=== PATIENT | female | born 1995 | race Caucasian/White ===

== ENCOUNTER 2016-12-31 23:41 | Emergency (ER) | payer MEDICAID ==
[~2016-12-31] VITALS: Ht 157.5 cm; Wt 70.0 kg
[2016-12-31] MEDS ORDERED: NORE0.3523 PO (23:50)
[2017-01-01 00:16] LABS: APPEARANCE,URINE CLEAR (CLEAR); BILIRUBIN,URINE NEGATIVE (NEGATIVE); GLUCOSE, URINE (UA) NEGATIVE (NEGATIVE); KETONES,URINE NEGATIVE (NEGATIVE); LEUKOCYTE ESTERASE ,URINE NEGATIVE (NEGATIVE); NITRATE,URINE NEGATIVE (NEGATIVE); OCCULT BLOOD,URINE NEGATIVE (NEGATIVE); PROTEIN,URINE NEGATIVE (NEGATIVE); UROBILINOGEN,URINE 0.2 mg/dL (<=1.0)
[2017-01-01 00:20] LABS: HCG,QUAL RESULT NEGATIVE (NEGATIVE)
[2017-01-01 00:23] LABS: BACTERIA,URINE Few /HPF (None Seen); SQUAMOUS EPITHELIAL CELL,UR Few /LPF (None Seen)
[2017-01-01 00:24] LABS: RBC,URINE 0-2 /HPF (0-2); WBC,URINE 0-2 /HPF (0-5)
[2017-01-01] MEDS ORDERED: ACETAMINOPHEN/CODEINE 300-30 MG TABLET PO ONE (01:15)
[2017-01-01] MEDS ORDERED: IBUPROFEN 600 MG TABLET PO ONE (01:15)
[2017-01-01] MEDS ORDERED: MAGNESIUM CITRATE 300 ML ORAL SOLUTION PO ONE (01:15)
[2017-01-01 03:01] VITALS: BP 120/70
== END 2017-01-01 03:02 | disposition home or self-care (01) ==
LOC: EMS 23:43
DX: N83.202 Unspecified ovarian cyst, left side (principal); K59.00 Constipation, unspecified; N91.5 Oligomenorrhea, unspecified; I10 Essential (primary) hypertension
CPT/HCPCS: 76856; 99285